=== PATIENT | female | born 2000 | race Two or more races ===

== ENCOUNTER 2022-01-15 16:12 | Emergency (ER) | payer OTHER ==
[2022-01-15 16:42] VITALS: BMI 20.2
[2022-01-15 18:35] LABS: BASO % 0.6 % (0-2.0); HEMATOCRIT 37.6 % (32.4-45.2); HEMOGLOBIN 12.6 GM/dL (10.7-15.3); LYMPH % 45.5 % (8-40); MCH 28.9 pg (25.7-33.7); MCHC 33.5 g/dl (32.0-36.0); MEAN CELL VOLUME 86.3 fl (80-96); MEAN PLT VOLUME 8.8 fl (7.5-11.1); MONO % 9.9 % (3.8-10.2); PLATELET COUNT 293 10^3/uL (134-434); RBC 4.36 M/mm3 (3.60-5.2); RDW 12.9 % (11.6-15.6); WHITE BLOOD COUNT 3.4 K/mm3 (4.0-10.0)
[2022-01-15 18:52] LABS: CALCIUM 9.7 mg/dL (8.5-10.1)
[2022-01-15 18:53] LABS: ALBUMIN 4.3 g/dl (3.4-5.0); BLOOD UREA NITROGEN 8.6 mg/dL (7-18)
[2022-01-15 18:56] LABS: CREATININE 0.6 mg/dL (0.55-1.3)
[2022-01-15 18:58] LABS: BILIRUBIN,TOTAL 0.6 mg/dL (0.2-1); TOT PROT 8.1 g/dl (6.4-8.2)
[2022-01-15 19:32] LABS: EPI CELLS 3 /uL (0-25.1); HYALINE CASTS 0 /uL (0-3.1); PH,URINE 6.5 (5.0-8.0); URINE APPEARANCE CLEAR; URINE BACTERIA 9 /uL (0-1359); URINE BILIRUBIN NEGATIVE (NEGATIVE); URINE COLOR YELLOW; URINE GLUCOSE (UA) NEGATIVE (NEGATIVE); URINE KETONE NEGATIVE (NEGATIVE); URINE LEUK ESTERASE NEGATIVE (NEGATIVE); URINE NITRITE NEGATIVE (NEGATIVE); URINE PROTEIN NEGATIVE (NEGATIVE); URINE RBC 3 /uL (0-23.9); URINE UROBILINOGEN 0.2 mg/dL (0.2-1.0); URINE WBC 1 /uL (0-25.8)
[2022-01-15 20:34] VITALS: BP 102/62; TEMP 100
[2022-01-15] MEDS ORDERED: ACETAMINOPHEN 500 MG TABLET (FP) PO ONE (20:38)
[2022-01-15] MEDS ORDERED: ACETAMINOPHEN 500 MG TABLET (FP) ONE (20:44)
[2022-01-15 21:12] VITALS: PULSE 92
== END 2022-01-15 21:20 | disposition home or self-care (01) ==
LOC: JER 16:12
DX: O20.0 Threatened abortion (principal)
CPT/HCPCS: 36415; 76817-TC; 80053; 81003; 84702; 85025; 86850; 86900; 86901; 87086; 99284-25

== ENCOUNTER 2022-01-17 15:45 | Emergency (ER) | payer OTHER ==
[2022-01-17 15:55] VITALS: BP 99/63; PULSE 100; TEMP 98; BMI 17.4
== END 2022-01-17 18:28 | disposition home or self-care (01) ==
LOC: JERFT 15:45
DX: O03.9 Complete or unspecified spontaneous abortion without complication (principal)
CPT/HCPCS: 36415; 84702; 99284-25

== ENCOUNTER 2023-03-13 04:15 | Inpatient (IN) | payer OTHER ==
[2023-03-13] MEDS: ELECTROLYTE-148 SOLN 1,000 ML IV SCH ×2 (04:45→08:25)
[2023-03-13 04:50] VITALS: BMI 24.1
[2023-03-13 05:21] LABS: INR 0.97 (0.83-1.09); PROTHROMBIN TIME (PATIENT) 11.2 SEC (9.7-13.0)
[2023-03-13 05:23] LABS: ACTIVATED PTT 28.3 SECONDS (25.2-36.5)
[2023-03-13 05:34] LABS: BLOOD UREA NITROGEN 5.4 mg/dL (7-18); CALCIUM 8.9 mg/dL (8.5-10.1)
[2023-03-13 05:35] LABS: BASO % 0.3 % (0-2.0); EOS % 0.6 % (0-4.5); HEMATOCRIT 36.7 % (32.4-45.2); HEMOGLOBIN 12.9 GM/dL (10.7-15.3); LYMPH % 18.8 % (8-40); MCH 31.8 pg (25.7-33.7); MCHC 35.1 g/dl (32.0-36.0); MEAN CELL VOLUME 90.7 fl (80-96); MEAN PLT VOLUME 10.8 fl (7.5-11.1); MONO % 6.6 % (3.8-10.2); NEUT % 73.7 % (42.8-82.8); PLATELET COUNT 189 10^3/uL (134-434); RBC 4.05 M/mm3 (3.60-5.2); RDW 13.7 % (11.6-15.6); WHITE BLOOD COUNT 8.5 K/mm3 (4.0-10.0)
[2023-03-13 05:38] LABS: CREATININE 0.5 mg/dL (0.55-1.3)
[2023-03-13 05:54] LABS: URINE BARBITURATES NEGATIVE (NEGATIVE)
[2023-03-13 05:55] LABS: COCAINE, UR NEGATIVE (NEGATIVE); OPIATES, URI NEGATIVE (NEGATIVE); PHENCYCLIDINE,URINE NEGATIVE (NEGATIVE); URINE BENZODIAZEPINES NEGATIVE (NEGATIVE)
[2023-03-13 06:04] LABS: METHADONE, UR NEGATIVE (NEGATIVE); URINE AMPHETAMINES NEGATIVE (NEGATIVE)
[2023-03-13] MEDS ORDERED: FENTANYL/BUPIVACAINE/NS/PF - PCEA - 50 ML DISP.SYRIN EP ONE ×2 (06:11→10:15)
[2023-03-13] MEDS ORDERED: NALOXONE HCL 0.4 MG/ML VIAL IVPUSH PRN (06:57)
[2023-03-13] MEDS ORDERED: FENTANYL/BUPIVACAINE/NS/PF - PCEA - 50 ML DISP.SYRIN EP SCH ×2 (07:00→07:40)
[2023-03-13] MEDS ORDERED: OXYTOCIN 20 UNITS in 0.9% NS 20 UNIT/1,000 ML INFUS.BAG IV ONE (09:17)
[2023-03-13] MEDS ORDERED: LIDOCAINE HCL 1% PRESERVATIVE FREE - 30ML VIAL ONE (09:17)
[2023-03-13] MEDS ORDERED: BENZOCAINE 28 GM HEMORRHOIDAL OINTMENT TP PRN (12:45)
[2023-03-13] MEDS ORDERED: BENZOCAINE 20% 57 GM BOTTLE TP PRN (12:45)
[2023-03-13] MEDS ORDERED: BISACODYL 10 MG SUPP.RECT RC PRN (12:45)
[2023-03-13] MEDS ORDERED: OXYTOCIN 20 UNITS in 0.9% NS 20 UNIT/1,000 ML INFUS.BAG IV SCH (12:45)
[2023-03-13] MEDS ORDERED: WITCH HAZEL 50% (TUCKS) 40 PAD/JAR PAD TP PRN (12:45)
[2023-03-13] MEDS ORDERED: IBUPROFEN 600 MG TABLET (FP) PO ONE (12:59)
[2023-03-13] MEDS: IBUPROFEN 600 MG TABLET (FP) PO PRN ×2 (13:00→21:40)
[2023-03-13 13:58] VITALS: RESP 18
[2023-03-14] MEDS: IBUPROFEN 600 MG TABLET (FP) PO PRN (05:19)
[2023-03-14] MEDS: ELECTROLYTE-148 SOLN 1,000 ML IV SCH (05:26)
[2023-03-14 07:18] LABS: BASO % 0.2 % (0-2.0); EOS % 0.5 % (0-4.5); HEMATOCRIT 33.7 % (32.4-45.2); HEMOGLOBIN 11.7 GM/dL (10.7-15.3); LYMPH % 12.5 % (8-40); MCH 31.7 pg (25.7-33.7); MCHC 34.8 g/dl (32.0-36.0); MEAN PLT VOLUME 10.1 fl (7.5-11.1); MONO % 5.3 % (3.8-10.2); NEUT % 81.5 % (42.8-82.8); PLATELET COUNT 185 10^3/uL (134-434); RDW 13.9 % (11.6-15.6); WHITE BLOOD COUNT 12.1 K/mm3 (4.0-10.0)
[2023-03-14] MEDS: ACETAMINOPHEN 325 MG TABLET (FP) PO PRN (20:40)
[2023-03-14] MEDS ORDERED: SENNOSIDES/DOCUSATE COMBO (SENNA PLUS) TABLET (UD) PO PRN (22:00)
[2023-03-15] MEDS: ACETAMINOPHEN 325 MG TABLET (FP) PO PRN (02:48)
[2023-03-15 13:13] VITALS: BP 120/70; PULSE 90; TEMP 98.4
== END 2023-03-15 14:00 | disposition home or self-care (01) | DRG 560 ==
LOC: JLDR 04:15 → J3W 14:30
PROVIDERS: ADMIT Obstetrics & Gynecology; ATTEND Obstetrics & Gynecology
PROC: 10E0XZZ Delivery of Products of Conception, External Approach (ICD-10-PCS; principal; 2023-03-13)
PROC: 0W8NXZZ Division of Female Perineum, External Approach (ICD-10-PCS; 2023-03-13)
PROC: 0HQ9XZZ Repair Perineum Skin, External Approach (ICD-10-PCS; 2023-03-13)
DX: O42.02 Full-term premature rupture of membranes, onset of labor within 24 hours of rupture (principal); O70.0 First degree perineal laceration during delivery; Z3A.49 Greater than 42 weeks gestation of pregnancy; Z37.0 Single live birth
CPT/HCPCS: 36415; 59025; 80048; 80307; 85025; 85610; 85730; 86780; 86850; 86900; 86901; C9803-CS; G0463-25; U0003; U0005

== ENCOUNTER 2025-03-14 16:28 | Observation (INO) | payer OTHER ==
[2025-03-14 17:22] VITALS: RESP 18
[2025-03-14] MEDS ORDERED: BETAMET ACET/BETAMET NA PH 30 MG/5 ML VIAL ONE (17:24)
[2025-03-14] MEDS: BETAMET ACET/BETAMET NA PH 30 MG/5 ML VIAL IM ONE (17:30)
[2025-03-14] MEDS: LACTATED RINGERS SOLUTION 1,000 ML IV ONE (17:40)
[2025-03-14 18:42] VITALS: PULSE 98; BMI 25.2
[2025-03-14] MEDS ORDERED: LACTATED RINGERS SOLUTION 1,000 ML IV SCH (19:15)
[2025-03-14 19:20] LABS: ABSOLUTE IMMATURE GRANULOCYTES 0.05 x10^3/uL (0.0-0.031); BASOPHILS # 0.02 x10^3/uL (0.01-0.08); EOSINOPHIL % 0.2 % (0.7-5.8); EOSINOPHILS # 0.02 x10^3/uL (0.04-0.36); HEMATOCRIT 37.9 % (34.1-44.9); HEMOGLOBIN 12.8 g/dL (11.2-15.7); MCHC 33.8 g/dl (32.2-35.5); MEAN CELL VOLUME 92.2 fl (79.4-94.8); MEAN PLT VOLUME 10.6 fl (9.4-12.3); MONOCYTE # 0.31 x10^3/uL (0.24-0.86); MONOCYTE % 3.6 % (4.7-12.5); PLATELET COUNT 222 x10^3/uL (182-369); RDW 12.7 % (12.1-16.5)
[2025-03-14 19:26] LABS: INR 1.02 (0.83-1.09); PROTHROMBIN TIME (PATIENT) 11.2 SEC (9.7-13.0)
[2025-03-14 19:38] LABS: POTASSIUM 3.8 mmol/L (3.5-5.1)
[2025-03-14 19:41] LABS: CALCIUM 9.5 mg/dL (8.5-10.1)
[2025-03-14 19:42] LABS: BLOOD UREA NITROGEN 5.2 mg/dL (7-18)
[2025-03-14 19:45] LABS: CREATININE 0.4 mg/dL (0.55-1.3)
[2025-03-14 20:22] VITALS: BP 99/64; TEMP 97.9
[2025-03-14 20:47] LABS: COCAINE, UR NEGATIVE (NEGATIVE); URINE AMPHETAMINES NEGATIVE (NEGATIVE); URINE BARBITURATES NEGATIVE (NEGATIVE); URINE BENZODIAZEPINES NEGATIVE (NEGATIVE)
[2025-03-14 20:48] LABS: METHADONE, UR NEGATIVE (NEGATIVE); OPIATES, URI NEGATIVE (NEGATIVE); PHENCYCLIDINE,URINE NEGATIVE (NEGATIVE)
[2025-03-15] MEDS ORDERED: BETAMET ACET/BETAMET NA PH 30 MG/5 ML VIAL IM ONE (17:00)
== END 2025-03-14 21:11 | disposition home or self-care (01) ==
LOC: JDEL 16:28 → JLDR 18:20
PROVIDERS: ADMIT Obstetrics & Gynecology Obstetrics; ATTEND Obstetrics & Gynecology Obstetrics
PROC: 3E0233Z Introduction of Anti-inflammatory into Muscle, Percutaneous Approach (ICD-10-PCS; principal; 2025-03-14)
PROC: 3E0337Z Introduction of Electrolytic and Water Balance Substance into Peripheral Vein, Percutaneous Approach (ICD-10-PCS; 2025-03-14)
DX: O26.893 Other specified pregnancy related conditions, third trimester (principal); Z3A.34 34 weeks gestation of pregnancy
CPT/HCPCS: 36415; 80048; 80307; 85025; 85610; 85730; 86780; 86850; 86900; 86901; 96360; 96372; G0378

== ENCOUNTER 2025-03-28 16:14 | Inpatient (IN) | payer OTHER ==
[2025-03-28 16:54] VITALS: BMI 25.6
[2025-03-28] MEDS: ELECTROLYTE-148 SOLN 1,000 ML IV SCH (17:00)
[2025-03-28 17:03] LABS: ABSOLUTE IMMATURE GRANULOCYTES 0.09 x10^3/uL (0.0-0.031); BASOPHILS # 0.02 x10^3/uL (0.01-0.08); EOSINOPHIL % 0.3 % (0.7-5.8); EOSINOPHILS # 0.02 x10^3/uL (0.04-0.36); HEMATOCRIT 37.5 % (34.1-44.9); HEMOGLOBIN 12.3 g/dL (11.2-15.7); MCHC 32.8 g/dl (32.2-35.5); MEAN CELL VOLUME 93.1 fl (79.4-94.8); MEAN PLT VOLUME 10.5 fl (9.4-12.3); MONOCYTE # 0.51 x10^3/uL (0.24-0.86); MONOCYTE % 6.6 % (4.7-12.5); PLATELET COUNT 233 x10^3/uL (182-369); RDW 12.7 % (12.1-16.5)
[2025-03-28 17:10] LABS: INR 1.01 (0.83-1.09); PROTHROMBIN TIME (PATIENT) 11.1 SEC (9.7-13.0)
[2025-03-28 17:13] LABS: ACTIVATED PTT 27.1 SECONDS (25.2-36.5)
[2025-03-28] MEDS: ELECTROLYTE-148 SOLN 500 ML IV SCH (17:30)
[2025-03-28] MEDS: CITRIC ACID/SODIUM CITRATE 30 ML UNIT-DOSE CUP PO ONE (18:35)
[2025-03-28] MEDS ORDERED: morphine SULFATE/PF 1 MG/2 ML (2cc Syringe - QUVA) ONE (18:44)
[2025-03-28] MEDS ORDERED: PHENYLEPHRINE HCL 10 MG/1 ML SINGLE DOSE VIAL ONE (18:44)
[2025-03-28] MEDS ORDERED: ceFAZolin SODIUM 1 GM VIAL ONE (18:44)
[2025-03-28] MEDS ORDERED: OXYTOCIN 10 UNITS/ML VIAL ONE (18:44)
[2025-03-28] MEDS ORDERED: KETOROLAC TROMETHAMINE 30 MG/1 ML VIAL ONE (18:44)
[2025-03-28] MEDS ORDERED: FENTANYL CITRATE/PF 50 MCG/ML VIAL ONE (18:44)
[2025-03-28] MEDS ORDERED: ONDANSETRON 4 MG/2 ML VIAL ONE (18:44)
[2025-03-28] MEDS ORDERED: ONDANSETRON 4 MG/2 ML VIAL IVPUSH PRN (20:26)
[2025-03-28 20:34] LABS: CORD HCO3 29.6 mmHg (20-29); CORD PCO2 64.8 mmHg (30-78); CORD pH 7.277 (7.14-7.44)
[2025-03-28 20:37] LABS: CORD BASE EXCESS -4.5 mmol/L (0-2); CORD HCO3 18.6 mmHg (20-29); CORD PCO2 29.8 mmHg (30-78); CORD pH 7.414 (7.14-7.44)
[2025-03-28 22:24] LABS: POTASSIUM 3.3 mmol/L (3.5-5.1)
[2025-03-28 22:26] LABS: CALCIUM 8.4 mg/dL (8.5-10.1)
[2025-03-28 22:27] LABS: ALBUMIN 2.6 g/dl (3.4-5.0); BLOOD UREA NITROGEN 5.4 mg/dL (7-18)
[2025-03-28 22:29] LABS: CREATININE 0.4 mg/dL (0.55-1.3)
[2025-03-28 22:31] LABS: BILIRUBIN,TOTAL 0.3 mg/dL (0.2-1); TOT PROT 5.8 g/dl (6.4-8.2)
[2025-03-28] MEDS ORDERED: OXYTOCIN 20 UNITS in 0.9% NS 20 UNIT/1,000 ML INFUS.BAG IV ONE (22:44)
[2025-03-28] MEDS: OXYTOCIN 20 UNITS in 0.9% NS 20 UNIT/1,000 ML INFUS.BAG IV SCH (22:45)
[2025-03-28] MEDS ORDERED: METHYLERGONOVINE MALEATE 0.2 MG/1 ML AMP IM PRN (22:51)
[2025-03-28] MEDS: KCL 10 MEQ IVPB 10 MEQ/100 ML INFUS.BAG IVPB SCH (23:50)
[2025-03-29] MEDS: IBUPROFEN 800 MG/8 ML IJ IVPB PRN (05:10)
[2025-03-29 06:40] LABS: ABSOLUTE IMMATURE GRANULOCYTES 0.08 x10^3/uL (0.0-0.031); BASOPHILS # 0.02 x10^3/uL (0.01-0.08); EOSINOPHIL % 0.2 % (0.7-5.8); EOSINOPHILS # 0.02 x10^3/uL (0.04-0.36); HEMOGLOBIN 11.9 g/dL (11.2-15.7); MCHC 33.1 g/dl (32.2-35.5); MEAN CELL VOLUME 93.5 fl (79.4-94.8); MONOCYTE % 6.4 % (4.7-12.5); PLATELET COUNT 201 x10^3/uL (182-369); RDW 12.6 % (12.1-16.5)
[2025-03-29] MEDS: PRENATAL VITAMINS W/ FOLIC ACID TABLET (FP) PO SCH (10:28)
[2025-03-29] MEDS: ACETAMINOPHEN 1000 MG/100 ML BAG IVPB PRN (10:28)
[2025-03-29] MEDS ORDERED: oxyCODONE HCL 5 MG TABLET PO PRN ×2 (10:51)
[2025-03-29] MEDS: ACETAMINOPHEN 325 MG TABLET (FP) PO PRN (16:28)
[2025-03-29] MEDS: IBUPROFEN 600 MG TABLET (FP) PO PRN (22:24)
[2025-03-29] MEDS: SIMETHICONE 80 MG TAB.CHEW (FP) PO PRN (22:24)
[2025-03-29] MEDS ORDERED: BISACODYL 10 MG SUPP.RECT RC PRN (22:51)
[2025-03-29] MEDS: OXYTOCIN 20 UNITS in 0.9% NS 20 UNIT/1,000 ML INFUS.BAG IV SCH (23:00)
[2025-03-30] MEDS: SENNOSIDES/DOCUSATE COMBO (SENNA PLUS) TABLET (UD) PO PRN (14:42)
[2025-03-31 08:29] LABS: ABSOLUTE IMMATURE GRANULOCYTES 0.05 x10^3/uL (0.0-0.031); BASOPHILS # 0.02 x10^3/uL (0.01-0.08); EOSINOPHIL % 1.2 % (0.7-5.8); EOSINOPHILS # 0.08 x10^3/uL (0.04-0.36); HEMATOCRIT 33.8 % (34.1-44.9); HEMOGLOBIN 11.3 g/dL (11.2-15.7); MCHC 33.4 g/dl (32.2-35.5); MEAN CELL VOLUME 92.9 fl (79.4-94.8); MEAN PLT VOLUME 10.7 fl (9.4-12.3); MONOCYTE % 8.9 % (4.7-12.5); PLATELET COUNT 225 x10^3/uL (182-369); RDW 12.6 % (12.1-16.5)
[2025-03-31 21:17] VITALS: RESP 18
[2025-04-01 10:06] VITALS: BP 103/67; PULSE 100; TEMP 97.3
== END 2025-04-01 13:30 | disposition home or self-care (01) | DRG 540 ==
LOC: JLDR 16:14 → J3W 23:00
PROVIDERS: ADMIT Obstetrics & Gynecology Obstetrics; ATTEND Obstetrics & Gynecology Obstetrics
PROC: 10D00Z1 Extraction of Products of Conception, Low, Open Approach (ICD-10-PCS; principal; 2025-03-28)
DX: O32.1XX0 Maternal care for breech presentation, not applicable or unspecified (principal); O36.5930 Maternal care for other known or suspected poor fetal growth, third trimester, not applicable or unspecified; Z3A.36 36 weeks gestation of pregnancy; Z37.0 Single live birth
CPT/HCPCS: 36415; 36600; 80053; 82803; 85025; 85610; 85730; 86780; 86850; 86900; 86901; 88307-TC; 94010; J0131

== ENCOUNTER 2025-04-13 16:38 | Emergency (ER) | payer OTHER ==
[2025-04-13 16:46] VITALS: BP 100/68; PULSE 103; RESP 20; TEMP 98.9; BMI 23.6
[2025-04-13] MEDS ORDERED: CEPHALEXIN MONOHYDRATE 500 MG CAPSULE (UD) ONE (17:58)
[2025-04-13 18:18] LABS: ABSOLUTE IMMATURE GRANULOCYTES 0.03 x10^3/uL (0.0-0.031); BASOPHILS # 0.04 x10^3/uL (0.01-0.08); EOSINOPHIL % 2.4 % (0.7-5.8); EOSINOPHILS # 0.14 x10^3/uL (0.04-0.36); HEMATOCRIT 38.6 % (34.1-44.9); HEMOGLOBIN 12.5 g/dL (11.2-15.7); MCHC 32.4 g/dl (32.2-35.5); MEAN CELL VOLUME 92.6 fl (79.4-94.8); MEAN PLT VOLUME 9.4 fl (9.4-12.3); MONOCYTE # 0.41 x10^3/uL (0.24-0.86); MONOCYTE % 6.9 % (4.7-12.5); PLATELET COUNT 421 x10^3/uL (182-369); RDW 11.8 % (12.1-16.5)
[2025-04-13 18:26] LABS: INR 1.05 (0.83-1.09); PROTHROMBIN TIME (PATIENT) 11.5 SEC (9.7-13.0)
[2025-04-13] MEDS: CEPHALEXIN MONOHYDRATE 500 MG CAPSULE (UD) PO ONE (18:26)
[2025-04-13 18:29] LABS: ACTIVATED PTT 35.2 SECONDS (25.2-36.5)
[2025-04-13 18:44] LABS: POTASSIUM 3.6 mmol/L (3.5-5.1)
[2025-04-13 18:46] LABS: CALCIUM 9.4 mg/dL (8.5-10.1)
[2025-04-13 18:47] LABS: ALBUMIN 3.4 g/dl (3.4-5.0); BLOOD UREA NITROGEN 10.9 mg/dL (7-18)
[2025-04-13 18:50] LABS: CREATININE 0.6 mg/dL (0.55-1.3)
[2025-04-13 18:52] LABS: BILIRUBIN,TOTAL 0.2 mg/dL (0.2-1); TOT PROT 7.4 g/dl (6.4-8.2)
== END 2025-04-13 19:13 | disposition home or self-care (01) ==
LOC: JER 16:38
DX: O90.0 Disruption of cesarean delivery wound (principal); O99.43 Diseases of the circulatory system complicating the puerperium; I49.8 Other specified cardiac arrhythmias
CPT/HCPCS: 36415; 76705-TC; 80053; 85025; 85610; 85730; 86803; 86850; 86900; 86901; 93005; 93010; 99285-25